=== PATIENT | male | born 1990 | race Caucasian/White ===

== ENCOUNTER 2018-01-05 19:13 | Emergency (ER) | payer OTHER, SELFPAY ==
[2018-01-05] VITALS (17 sets, daily range): BP systolic 104–202; BP diastolic 57–86; PULSE 73–123; RESP 14–47; TEMP 37.2; O2SAT 81–100; BMI 31.3
[2018-01-05] MEDS: Glucagon 1 MG/ML Syringe IV (20:12)
--- NOTE | 2018-01-05 20:23 | ED.VISSUMM ---
- ER Visit Summary Date of Service: 01/05/18 Chief Complaint: Meat stuck in esophagus History of Present Illness: The patient is a 27 M who states that tonight he was eating steak when it apparently got stuck in his esophagus. He states he cannot swallow his saliva and is spitting it into a bottle. He has a history of ulcerative colitis and sees Dr. Su. He has had colonoscopies. He has never had an EGD. He notes no history of indigestion/GERD. No prior history of esophageal food bolus. No surgical history other than colonoscopy. He takes mesalamine for his UC. Physical Examination: Afebrile vital signs are stable Gen: Well-nourished well-developed spitting into a cup Head: Normocephalic atraumatic Eyes: Perrl EOMI ENT: TMs clear no rhinorrhea moist mucous membranes Neck: Supple no lymphadenopathy no JVD nontender CVS: Regular rate rhythm no murmurs normal S1-S2 Respiratory: No distress clear to auscultation bilaterally chest nontender Abdomen: Soft nontender nondistended normal bowel sounds no masses Back: Nontender Extremity: Nontender no edema Skin: Normal color no rash Neuro: alert orientated ?3 CN II-XII intact normal strength sensation reflexes gait cerebellar Psych: Normal affect normal mood Emergency Department Course and Treatment: The patient received glucagon and nitroglycerin. He also tried coke. These were unsuccessful. I spoke with Dr. Starks from general surgery who is agreed to come to the department to perform EGD. Patient provided informed consent for the use of propofol for procedural sedation. I will be performing the sedation while Dr. Starks performs the endoscopy. ASA Class 1. Mallampati 1. The patient has no surgical history. The patient was prepped for sedation and endoscopy in the usual manner being placed on the monitor and given supplemental oxygen through nasal cannula. Patient received 1 mg/kg bolus followed by 0.5 mg/kg boluses until adequate sedation was achieved and maintained. The procedure was started. Please see Dr. Alston's dictation regarding the endoscopy. The procedure became prolonged and the patient was having difficulty maintaining sedation. He had received a total of about 500 mg of propofol over 20-25 minutes. He varied between too deep of sedation and to awake for the procedure. the decision was made to go ahead and stop when the patient began to have desaturation. Decision was made to go ahead and intubate the patient to protect his airway from his copious secretions. Patient underwent RSI using etomidate and succinylcholine. A 8-0 endotracheal tube was passed on the first attempt without any difficulty. Equal breath sounds and color change were noted. Patient was easily bagged. Post intubation the patient received Versed and fentanyl. The food impaction was removed. The patient's was allowed to recover. Patient had heavy secretions prior to the intubation most likely sustained some degree of aspiration. He received a DuoNeb after he was extubated for wheezing. He was slowly transitioned to nasal cannula and eventually to room air. Chest x-ray shows atelectatic changes. Patient is conversant. He has ambulated and does not have any desaturations. He is on room air. He currently has no complaints other than a sore throat. He and family were advised that should he develop fever difficulty breathing he should return immediately to the emergency department. Dr. Alston recommends that the patient be placed on clear liquids and Jell-O for the next several days. They will call the office on Monday to arrange follow-up. Impression: 1. Esophageal food impaction 2. Procedural sedation (40 minutes)by emergency physician 3. Emergency EGD by general surgeon. This note was generated with AwesomeTouch dictation software. It may contain incorrect words, spelling, and punctuation that were not noted in review of the chart prior to signing ED Disposition - Plan for ED Patient: Disposition: Home or Assisted Living Chief Complaint: Foreign Body Instructions: ED Foreign Body Esophageal Rslv, ED Atelectasis Referrals: Alfie Starks MD [STAFF PHYSICIAN] - (CALL THE OFFICE ON MONDAY TO ARRANGE FOLLOW UP) Additional Instructions: Should you develop fever shortness of breath or have any concerns return to the emergency department
[2018-01-05] MEDS: Propofol 200 MG/20 ML Vial 400 MG IV BOLUS (22:00)
[2018-01-05] MEDS: Succinylcholine Chloride 200 MG/10 ML Vial 100 MG IV (22:29)
[2018-01-05] MEDS: Etomidate 20 MG/10 ML Vial IV (22:29)
[2018-01-05] MEDS: Midazolam 5 MG/ML Syringe IV (22:32)
[2018-01-05] MEDS: fentaNYL 100 MCG/2 ML Ampul 50 MCG IV (22:32)
[2018-01-05] MEDS: Ipratropium/Albuterol Sulfate 3 ML AMPUL.NEB INHALATION (23:00)
--- NOTE | 2018-01-05 23:19 | ED.RN ---
Addendum entered by Marino Finch 01/06/18 00:26: CORRECTION- PROCEDURE BEGAN AT 2200 Original Note: Addendum entered by Marino Finch 01/05/18 23:27: SEE ENDO DOCUMENTATION FOR PROCEDURAL AND SEDATION DOCUMENTATION Original Note: ENDO AT BEDSIDE WITH DR PIÑA. DR OSORIO AT BEDSIDE ADMINISTER PROPOFOL. PROCEDURE STARTS AT 2100.
--- NOTE | 2018-01-05 23:29 | RAD_ITS ---
STUDY: X-RAY CHEST REASON FOR EXAM: Male, 27 years old. Patient choked on a piece of steak shortness of breath TECHNIQUE: 1 view COMPARISON: None. FINDINGS: Platelike atelectatic changes in both lung bases. No acute pneumonia or failure and no pleural effusions. Heart is normal in size Normal visualized thoracic spine. Normal visualized ribs, clavicles, and shoulders. There is no demonstrated abnormality of the visualized soft tissue structures of the upper abdomen. RAD/Chest 1 View (Portable) IMPRESSION: Bibasilar platelike atelectatic changes. No pneumonia. No failure. No pleural effusions. Electronically Signed: Jer Roa, at 0:25 EDT Tel , Service support ,
--- NOTE | 2018-01-05 23:33 | ED.RN ---
MULTIPLE ATTEMPTS AT RETRIEVING FOREIGN BODY WITH NO SUCCESS. PT'S OXYGEN LEVEL STARTS TO DECLINE. DR PIÑA AND DR OSORIO STILL AT BEDSIDE. PT'S COLOR STARTS TO GET DUSKY, DR OSORIO STARTS TO OXYGENATE VIA BMV. RESPIRATORY CALLED TO BEDSIDE. FAMILY UPDATED BY THIS RN. THIS RN GRABS RAPID INTUBATION BOX FOR PREPARATION OF POSSIBLE INTUBATION. DECISION MADE TO INTUBATE. PT INTUBATED BY DR OSORIO AT 2230 PER DOCUMENTATION. PT WAS BAGGED FOR THE REST TO PROCEDURE BY DR OSORIO. FAMILY UPDATED. FOREIGN BODY RETRIEVED AFTER MULTIPLE MORE ATTEMPTS. PT THEN EXTUBATED AT 2250. FAMILY UPDATED. PT PLACED ON NONREBREATHER. DUONEB GIVEN BY RESPIRATORY. PT OBSERVED BY BOTH DOCTORS, ENDO STAFF AND ED RNS WHILE WAKING UP FROM SEDATION. FAMILY UPDATED AND BROUGHT TO THE BEDSIDE, DR PIÑA THEN EDUCATED FAMILY ON THE SITUATION. PT STARTED TO WAKE UP AND PLACED ON NC 2L. PT MOVING AND COUGHING, ANSWERING TO NAME. PT MOVED TO ROOM 1 FOR OBS.
--- NOTE | 2018-01-05 23:51 | CON.PCM_ITS ---
Reason for Consult Date of Consultation: 01/05/18 History of Present Illness: The patient is a 27 year old M who ate a piece of steak at dinner time and has had the sensation of an esophageal foreign body. the patient had cooked a steak yesterday evening. he apparently reheated steak and went to eat at this evening when he experienced a sensation of an esophageal foreign body. He had previously noted occasional food sticking, usually solid foods but never had an issue to this extreme. He attempted to pass this with liquids without result. He presented to [facility] with the above findings. Attempts to clear this foreign body with medications failed. I was contacted for removal of esophageal foreign body. He otherwise has no significant past medical or surgical history. Past Medical History Allergies erythromycin ethylsuccinate [From Pediazole] Allergy (Verified 01/05/18 19:14) Hives sulfisoxazole acetyl [From Pediazole] Allergy (Verified 01/05/18 19:14) Hives Home Medications: Ambulatory Orders Medication Instructions Recorded Mesalamine [Lialda] 2.4 gm PO DAILY 01/01/15 Surgical History: no surgical history Smoking Status: Never smoker - *Family History Maternal History Items: No pertinent history Review of Systems Constitutional: Denies: Chills, Fever, Weight Change HEENT: Reports: Difficulty Swallowing. Denies: Head Aches, Sinus Congestion, Sinus Drainage Cardiovascular: Denies: Chest Pain, Palpitations Respiratory: Denies: Cough, Shortness of breath at rest, Sputum production Gastrointestinal: Denies: Abdominal Pain, Nausea, Vomiting Genitourinary: Denies: Dysuria Musculoskeletal: Denies: Joint Pain, Joint Tenderness Skin: Denies: Rash, Wounds Neurological: Denies: Numbness, Tingling, Focal weakness Psychiatric: Denies: Anxiety, Depression, Homicidal Ideations, Suicidal Ideations Hematologic/ Lymphatic: Denies: Easy Bruising, Easy Bleeding - Physical Exam General: Alert, Oriented x3 Lungs: Clear to auscultation, Normal air movement Cardiovascular: Regular rate, No murmurs Abdomen: Bowel Sounds Present, Non Tender Vital Signs Temp Pulse Resp BP Pulse Ox 98.9 F 87 21 H 144/67 H 98 01/05/18 19:14 01/05/18 23:26 01/05/18 23:26 01/05/18 23:26 01/05/18 23:26 Oxygen Flow Rate (L/min) 2 Oxygen Delivery Method Nasal Cannula Weight: 90.718 kg Body Mass Index (BMI) 31.3 Assessment/Plan esophageal foreign body, status post removal. Dictated separate cover was removal of esophageal foreign body. This was very challenging due to the degree of food impaction, required intubation due to both desaturation. The patient with just sedation and the risk for aspiration given the need for piecemeal removal of the meat. Total time spent attempting to remove the foreign body and pre-and post recovery from sedation approximated 1 hour. The patient had some coughing and wheezing afterwards. There did not seem to be significant aspiration with food or liquid within the endotracheal tube. Post extubation, the patient was given an albuterol nebulizer treatment. A chest x-ray was obtained which demonstrated was felt to be a degree of atelectasis, but no obvious consistence findings with aspiration. My recommendation is the patient has any chest pain, fevers, or other difficulties, seizures or tremors department immediately. He was sent home with incentive spirometer. I recommend the patient contacted my office Monday for follow-up in the office next week. I would then plan for repeat upper endoscopy 2-4 weeks from this event to assess further esophageal stricture or findings consistent with eosinophilic esophagitis. The patient's family understand this plan.
--- NOTE | 2018-01-05 23:51 | PCM.OPRPT ---
Report of Operation Date of Procedure: 01/05/18 Pre-Operative Diagnosis: esophageal foreign body Post-Operative Diagnosis: complicated removal of esophageal foreign body Surgery/Procedure Performed:: esophagogastroduodenoscopy and removal of esophageal foreign body livestock inspector: None Type of Anesthesia:: MAC Specimen's removed: None Description of Procedure: The patient was brought to the trauma resuscitation room in the emergency department. Sign in was performed verifying patient, site, planned procedure, critical nursing information, the patient was monitored with cardiac, pulse oximetric, EKG and blood pressure monitoring devices, sedation was provided by the emergency room physician using propofol. Following IV sedation and after the oropharynx was sprayed with Cetacaine spray, a video gastroscope was inserted in the oropharynx and advanced down the esophagus without difficulty. The scope encounter any significant food bolus in the distal esophagus. This was removed in piecemeal fashion with both a Briceño net and/or grasper. due to the fact the food was very deeply impacted and challenges trying to keep the patient adequately sedated, and due to desaturation, the procedure was halted and the patient was intubated in a rapid sequence fashion. Following this, repeat attempts to remove the meat were undertaken in a piecemeal fashion. After removing multiple pieces of the foreign body in the above fashion, the foreign body was able to be gently passed into the stomach with pressure from the scope. The stomach was visualized unremarkable area did as the gastroscope was removed, the esophagus demonstrated irritation, both from the food bolus and from attempts to remove it without significant deep injury. The patient tolerated the procedure well and was maintained in the trauma bay in stable condition
[2018-01-06 00:08] VITALS: BP 136/64; PULSE 90; RESP 17; O2SAT 95
[2018-01-06 01:04] VITALS: BP 120/66; PULSE 84; RESP 17; O2SAT 96
--- NOTE | 2018-01-06 15:03 | ED.RN ---
PTS MOTHER CALLED TO ED REQUESTING LIDO RX. STATES HE DID NOT RECEIVE LAST NIGHT. CASE REVIEWED WITH DR LO. VERBAL ORDER GIVEN TO CALL IN RX. MED CALLED TO [facility] ON [address] VISC LIDOCAINE 5-10ML PO Q4 HOURS PRN DISP 100ML. MOTHER NOTIFIED OF RX CALL IN.
== END 2018-01-06 01:05 | disposition home or self-care (01) ==
LOC: ED 20:06 → EN 21:28 → ED 21:31 → EN 21:39 → ED 21:42 → EN 23:45 → ED 01-06 00:25
PROVIDERS: Surgery; Emergency Provider Emergency Medicine; Family Provider Family Medicine; PCP Family Medicine
PROC: 0DJ08ZZ Inspection of Upper Intestinal Tract, Via Natural or Artificial Opening Endoscopic (ICD-10-PCS; CPT 43235; principal; 2018-01-05 21:30)
DX: T18.128A Food in esophagus causing other injury, initial encounter (principal); X58.XXXA Exposure to other specified factors, initial encounter; Y93.89 Activity, other specified; Y92.9 Unspecified place or not applicable; K51.90 Ulcerative colitis, unspecified, without complications
CPT/HCPCS: 43247; 31500; 71045; 94640; 96374; 99251; 99284; J7030; A4216; G0463; J1610

== ENCOUNTER 2018-01-23 05:28 | Day surgery (SDC) | payer OTHER, SELFPAY ==
[2018-01-23] VITALS (7 sets, daily range): BP systolic 104–117; BP diastolic 36–79; PULSE 58–65; RESP 16; TEMP 36.1–36.9; O2SAT 95–100; BMI 31.3
--- NOTE | 2018-01-23 | IMM_PTH ---
PATIENT: EHSAN WILLIAMSON LOC: EN U#:[id number] AGE/SX: 27/M ROOM: RE01/23/[address]: Dr. Anson Guzman MD : 1990 BED: DIS: 01/23/2018 SPEC #: [id number] RECD: 01/24/18 13:46 STATUS: YANELY NEFTALY #: [id number] MARIA SUBM DR: Anson Guzman DEPT: IMMUNOHISTOCHEMISTRY RECD BY: Moraima Becerra ENTERED: 01/24/18 13:48 SP TYPE: IMMUNO OTHR DR: Dr. Darius Alamo MD Tissues: A - Stomach, NOS Procedures: H Pylori (initial) PHYSICIAN & INSTITUTION [place] [id number] SPECIMEN INFORMATION: Tissue Source: A ? Antral biopsy Clinical Info: Esophageal dysphagia Specimen Number: [id number] CPT code: 07856 METHODOLOGY: Deparaffinized sections of prefer/formalin-fixed tissue or PAP/DQ stained slides are incubated with monoclonal/polyclonal antibodies/oligonucleotide probes. Localization is made via biotin free immunoperoxidase method. Appropriate controls are performed and reacted as expected. Results on target cell population are indicated in the following table: RESULTS: ANTIBODY / CLONE RESULT Block A H Pylori (polyclonal) negative These tests were developed and their performance characteristics determined by [facility]. They may not have been cleared or approved by the U.S. Food and Drug Administration. The FDA has determined that such clearance or approval is not necessary. INTERPRETATION: A. Antral biopsy: Negative for Helicobacter pylori organisms. SJ:love 01/24/18
--- NOTE | 2018-01-23 06:30 | EGD_PTH ---
PATIENT: EHSAN WILLIAMSON LOC: EN U#:[id number] AGE/SX: 27/M ROOM: RE01/23/[address]: Dr. Anson Guzman MD : 1990 BED: DIS: 01/23/2018 SPEC #: [id number] RECD: 01/23/18 12:37 STATUS: YANELY NEFTALY #: [id number] MARIA SUBM DR: Anson Guzman DEPT: SURGICAL PATHOLOGY RECD BY: Jacqueline Foreman ENTERED: 01/23/18 14:15 SP TYPE: EGD BIOPSY [facility] DR: Dr. Darius Alamo MD Tissues: A - Gastric mucous membrane B - Esophagus, NOS C - Esophagus, NOS D - Esophagus, NOS Procedures: Surgery Specimen Level IV HEADER OPERATION: EGD PRE-OP DIAGNOSIS: Esophageal dysphagia TISSUE SUBMITTED: A. Antral biopsy, B. Distal esophagus biopsy, C. Mid esophagus biopsy, D. Proximal esophagus biopsy MICROSCOPIC DIAGNOSIS A. Antral biopsy: Mild gastritis. See microscopic description and comment. B. Distal esophagus, biopsy: Fragments of squamous mucosa with changes consistent with eosinophilic esophagitis. See comment. C. Mid esophagus, biopsy: Fragments of squamous mucosa with changes consistent with eosinophilic esophagitis. See comment. D. Proximal esophagus, biopsy: Fragments of squamous epithelium with mild chronic inflammation. See comment. SJ:rg 01/24/18 COMMENT A. The results of immunohistochemistry for Helicobacter pylori will be reported separately ([id number]). B & C. Increased number of eosinophils (>20 per high power field) are noted consistent with eosinophilic esophagitis. D. Mild increase of eosinophils is also noted. Correlation with clinical, endoscopic findings and appropriate follow up are necessary. MICROSCOPIC DESCRIPTION Slides are reviewed. A. The specimen shows fragments of gastric mucosa with chronic inflammatory cell infiltrates in the lamina propria consisting of lymphocytes and plasma cells, consistent with mild chronic gastritis. GROSS DESCRIPTION A - Received in fixative is one container labeled with the patient's name and designated gastric antrum biopsy. The specimen consists of two irregular fragments of light ordaz soft tissue that in aggregate measure 0.6 x 0.5 x 0.1 cm. The specimen is totally submitted in one cassette. B - Received in fixative is one container labeled with the patient's name and designated distal esophagus biopsy. The specimen consists of multiple irregular fragments of light ordaz soft tissue that in aggregate measure 1 x 0.5 x 0.1 cm. The specimen is totally submitted in one cassette. C - Received in fixative is one container labeled with the patient's name and designated mid esophagus biopsy. The specimen consists of multiple irregular fragments of light ordaz soft tissue that in aggregate measure 1 x 0.5 x 0.1 cm. The specimen is totally submitted in one cassette. D - Received in fixative is one container labeled with the patient's name and designated biopsy proximal esophagus. The specimen consists of multiple irregular fragments of light ordaz soft tissue that in aggregate measure 0.7 x 0.5 x <0.1 cm. The specimen is totally submitted in one cassette. / AM:love 01/23/18 TC:3 CPT: 94908 x4
--- NOTE | 2018-01-23 06:42 | PCM.OPRPT ---
Problem List (1) Esophageal dysphagia Status: Acute Report of Operation Date of Procedure: 01/23/18 Pre-Operative Diagnosis: Esophageal dysphagia. Recent history of food bolus esophageal obstruction Post-Operative Diagnosis: Abnormal appearance of the midesophagus with serial rings. Pathology pending. Eosinophilic esophagitis Surgery/Procedure Performed:: Esophagogastroduodenoscopy with multiple biopsies Description of Surgical Findings:: Timeout and informed consent was obtained. 27-year-old gent was taken to the endoscopy suite. His oropharynx anesthetized with Topex. He was placed in the left lateral decubitus position. Throughout the procedure he received a total of 100 mg Demerol and 4 mg of Versed is intravenous sedation. Videogastroscope was inserted into the esophageal inlet. Proximal mid distal esophagus carefully inspected. EG junction approximately 40 cm. In the mid esophagus were multiple undulating rings. This finding can be found with eosinophilic esophagitis. Scope was advanced down to the e.g. junction. This appeared to be completely healed no significant hiatal hernia. The scope was advanced in the stomach minimal if any erythema of the antrum noted. Scope was advanced through the pylorus and the first and second portion of the duodenum were inspected this was not remarkable. Scope was withdrawn back to the stomach retroflexed the EG junction cardia inspected this appeared to be normal greater and lesser curvatures inspected and normal antral biopsy was obtained. Excess fluid and air was aspirated free. The scope was withdrawn to the e.g. junction. Distal esophageal cold forceps biopsies were obtained as were the other biopsies. Mid esophageal biopsies with cold forceps and proximal esophageal biopsies with cold forceps also obtained. Hemostasis was intact no apparent complications patient was taken to the recovery area in satisfactory condition Impression With the recent history of food bolus obstruction and the undulating rings in the mid esophagus my current diagnosis is eosinophilic esophagitis. I will await pathology results. Medications were given at 0626. The procedure was started at 0629. The procedure was completed at 0636. Cc: Dr. Darius Guzman M.D., F.A.C.S. Type of Anesthesia:: IV Sedation
== END 2018-01-23 07:45 | disposition home or self-care (01) ==
LOC: EN 05:28 → AC 05:30
PROVIDERS: Family Provider Family Medicine; PCP Family Medicine; Visit Provider Surgery
PROC: (CPT 43239; principal; 2018-01-23 06:25)
DX: K20.0 Eosinophilic esophagitis (principal); K29.70 Gastritis, unspecified, without bleeding; K51.90 Ulcerative colitis, unspecified, without complications
CPT/HCPCS: 43239; 88305; 88342; 99152; 99153; J7120

== ENCOUNTER → 2018-01-23 12:38 | Outpatient (CLI) | payer OTHER, SELFPAY | PROVIDERS: Family Provider Family Medicine; PCP Family Medicine; Visit Provider Surgery | DX: R13.19 Other dysphagia (principal) ==